=== PATIENT | female | born 1950 | race Caucasian/White ===

== ENCOUNTER → 2018-09-21 13:39 | Outpatient (CLI) | payer OTHER, SELFPAY ==
--- NOTE | 2018-09-21 | DI.MG.S_ITS ---
BILATERAL DIGITAL SCREENING MAMMOGRAM 3D/2D WITH CAD: 09/21/2018 CLINICAL: Routine screening. Family history of breast cancer. Comparison is made to exams dated: 04/29/2017 mammogram, 06/15/2014 mammogram, and 04/08/2012 mammogram - [facility]. There are scattered fibroglandular elements in both breasts. Current study was also evaluated with a Computer Aided Detection (CAD) system. No significant masses, calcifications, or other findings are seen in either breast. There has been no significant interval change. IMPRESSION: NEGATIVE There is no mammographic evidence of malignancy. A 1 year screening mammogram is recommended. This exam was interpreted at Station ID: [id number]. NOTE: For mammograms, a report in lay terms will be sent to the patient. Approximately 15% of breast malignancies will not be visualized mammographically. In the management of a palpable breast mass, a negative mammogram must not discourage biopsy of a clinically suspicious lesion. Electronically Signed By: Adarsh bai/destinee:09/21/2018 15:01:00 letter sent: Normal Exam ACR BI-RADS Category 1: Negative 3341F
== END ==
PROVIDERS: PCP Family Medicine; Visit Provider Family Medicine
DX: Z12.31 Encounter for screening mammogram for malignant neoplasm of breast (principal); Z80.3 Family history of malignant neoplasm of breast
CPT/HCPCS: 77063; 77067

== ENCOUNTER → 2020-10-14 12:32 | Outpatient (CLI) | payer MEDICARE, SELFPAY ==
--- NOTE | 2020-10-14 12:32 | DI.MG.S_ITS ---
BILATERAL DIGITAL SCREENING MAMMOGRAM 3D/2D WITH CAD: 10/14/2020 CLINICAL: Routine screening. Family history of breast cancer. Comparison is made to exams dated: 09/21/2018 mammogram, 04/29/2017 mammogram, and 06/15/2014 mammogram - [facility]. There are scattered fibroglandular elements in both breasts. Current study was also evaluated with a Computer Aided Detection (CAD) system. No significant masses, calcifications, or other findings are seen in either breast. There has been no significant interval change. IMPRESSION: NEGATIVE There is no mammographic evidence of malignancy. A 1 year screening mammogram is recommended. This exam was interpreted at Station ID: [id number]. NOTE: For mammograms, a report in lay terms will be sent to the patient. Approximately 15% of breast malignancies will not be visualized mammographically. In the management of a palpable breast mass, a negative mammogram must not discourage biopsy of a clinically suspicious lesion. Electronically Signed By: Ethan neumann/destinee:10/16/2020 07:51:44 letter sent: Normal Exam ACR BI-RADS Category 1: Negative 3341F
== END ==
PROVIDERS: PCP Family Medicine; Referring Provider Family Medicine; Visit Provider Family Medicine
DX: Z12.31 Encounter for screening mammogram for malignant neoplasm of breast (principal)
CPT/HCPCS: 77063; 77067

== ENCOUNTER → 2021-01-10 13:26 | Outpatient (CLI) | payer MEDICARE, SELFPAY ==
--- NOTE | 2021-01-10 | DI.ECHO.S_ITS ---
[facility] +---------+ : : [address] [place] [address] : : : : [id number] : : : : Phone: [phone]---------+ Echocardiogram Report + + :Name: GA QUEVEDO Study Date: 01/10/2021 Height: 68 in : :[facility] ReadingLocation: Weight: 168 lb : : Gender: Female BSA: 1.9 m2 : :: 1950 Age: 70 yrs BP: 178/104 mmHg: :Reason For Study: TACHYCARDIA : :Ordering Physician: SHANNA, : :DOMENIC Performed By: Bella Bojorquez : :Referring: DOMENIC OTERO : + + Interpretation Summary The left ventricle is normal in size and wall thickness. The ejection fraction is estimated to be 65-70%. The right ventricle is normal in size and function. There is mild to moderate mitral regurgitation. There is mild to moderate aortic regurgitation. There is mild to moderate tricuspid regurgitation. The right ventricular systolic pressure is estimated to be at least 25 mmHg based on an estimated right atrial pressure of 3 mm Hg. Procedure: A two-dimensional transthoracic echocardiogram with color flow and Doppler was performed. The study quality was technically adequate. There is no prior echocardiogram noted for this patient. The patient was in sinus rhythm with heart rates between 66-88 bpm during the exam. Left Ventricle: The left ventricle is normal in size and wall thickness. There is no thrombus. A false chord is noted (normal variant). The ejection fraction is estimated to be 65-70%. There are no focal wall motion abnormalities. Diastolic parameters suggest a relaxation abnormality of the left ventricle, consistent with probable normal filling pressures. Right Ventricle: The right ventricle is normal in size and function. Atria: The left atrium is mildly dilated. Right atrial size is normal. There is no Doppler evidence for an interatrial shunt. Mitral Valve: There is mild mitral annular calcification. There is mild to moderate mitral regurgitation. Aortic Valve: The aortic valve is trileaflet. The aortic valve opens well. There is no aortic valve stenosis. There is mild to moderate aortic regurgitation. Tricuspid Valve: The tricuspid valve is normal. There is mild to moderate tricuspid regurgitation. The right ventricular systolic pressure is estimated to be at least 25 mmHg based on an estimated right atrial pressure of 3 mm Hg. Pulmonic Valve: The pulmonic valve leaflets are thin and pliable; valve motion is normal. There is mild pulmonic regurgitation. Great Vessels: The aortic root is normal size. The ascending aorta is at the upper limits of normal in size. The IVC is of normal diameter and collapses greater than 50% with a sniff. This suggests a low right atrial pressure of 3 mm Hg. Pericardium/ Pleura There is no pericardial effusion. There is an anterior echo-free space consistent with a fat pad. There is no pleural effusion. MMode/2D Measurements & Calculations LVIDd: 5.0 cm LVOT diam: 2.0 cm LVIDs: 3.0 cm Ao root diam: 3.4 cm FS: 40.4 % asc Aorta Diam: 3.5 cm IVSd: 0.87 cm Ao Arch Diam (Prox Trans): 2.2 cm LVPWd: 0.86 cm LV joyce. diameter/BSA (cm/m^2): 2.6 LV sys. diameter/BSA (cm/m^2): 1.6 LA A2 area: 20.6 cm2 RA long axis: 5.3 cm LA A4 area: 16.7 cm2 RA area: 14.9 cm2 LA length (vol): 4.5 cm RA vol: 35.9 ml LA vol: 65.4 ml RA : 18.9 ml/m2 LA vol index: 34.5 ml/m2 IVC diam: 0.81 cm RVD1 (basal): 3.0 cm TAPSE: 2.5 cm Doppler Measurements & Calculations Ao V2 max: 154.8 cm/sec LVOT Max Edgar: 124.6 cm/sec Ao V2 mean: 101.2 cm/sec LV V1 max P.2 mmHg Ao max P.6 mmHg LV V1 VTI: 27.6 cm Ao mean P.7 mmHg MORRO(I,D): 2.7 cm2 Ao V2 VTI: 32.3 cm MORRO(V,D): 2.6 cm2 sev ratio: 0.85 MORRO indexed to BSA (cm^2/m^2): 1.4 AI P1/2t: 633.5 msec AI dec slope: 215.0 cm/sec2 MV E max edgar: 60.5 cm/sec TR max edgar: 238.1 cm/sec MV A max edgar: 83.3 cm/sec TR max P.7 mmHg MV E/A: 0.73 PA V2 max: 108.0 cm/sec Med Peak E' Edgar: 7.6 cm/sec PA V2 mean: 76.0 cm/sec E/E' med: 7.9 PA mean P.6 mmHg Lat Peak E' Edgar: 5.7 cm/sec PA pr(Accel): 29.3 mmHg E/E' lat: 10.6 E/e' average: 9.3 MV dec time: 0.31 sec SV(LVOT): 88.8 ml Reading Physician:06:04 PM
== END ==
PROVIDERS: PCP Family Medicine; Referring Provider Family Medicine; Visit Provider Family Medicine
DX: I08.3 Combined rheumatic disorders of mitral, aortic and tricuspid valves (principal); R00.0 Tachycardia, unspecified; R42 Dizziness and giddiness
CPT/HCPCS: 93306

== ENCOUNTER 2021-01-25 12:09 | Day surgery (SDC) | payer MEDICARE, SELFPAY ==
[2021-01-25] VITALS (7 sets, daily range): BP systolic 110–140; BP diastolic 66–94; PULSE 57–77; RESP 10–98; TEMP 36–36.8; O2SAT 96–100; BMI 25.9
--- NOTE | 2021-01-25 13:32 | PM.HP.1 ---
History of Present Illness History of Present Illness Date Patient Seen: 01/25/21 Time Patient Seen: 13:33 Chief complaint: DX COLONOSCOPY Narrative: The patient presents for colorectal sreening. She has had a previously colonoscopy. She was referred for diagnostic colonoscopy secondary to a positive screening fecal immunochemical test. No personal or family history of colon cancer. On further history denies any recent gastrointestinal symptoms. No nausea, vomiting, abdominal pain, loss of appetite, unexplained weight loss, change in bowel habits, diarrhea, constipation, melena, hematochezia, or bright red blood per rectum. Patient History Surgical History History of third molar tooth extraction History of tonsillectomy Status post hysterectomy Family & Social History Family History Father Hypertension Social History: household members spouse Tobacco & Substance use: Smoking Status Former smoker alcohol intake frequency holiday/special occasion Substance Use Type does not use Meds Home Medications and Allergies Home Medications Medication Instructions Recorded Confirmed Type CA PANTOTHENATE/FOLIC ACID/VIT 1 tab PO QDAY #0 11/13/10 History (MULTIVITAMIN) CHOLECALCIFEROL (VITAMIN D) 2,000 iu PO Q DAY #0 11/13/10 History CHONDROITIN SULFATE/GLUCOSAMIN 1 tab PO Q DAY #0 11/13/10 History (GLUCOSAMINE/CHONDROITIN 600 MG-750 MG) loratadine 10 mg tablet 10 mg PO QDAY #0 02/21/12 History [BENEDRYL] 25 mg HS #0 08/20/16 History [TUMERIC] 450 mg Q DAY #0 08/20/16 History naproxen sodium 220 mg capsule 220 mg PO Q DAY #0 08/20/16 History omega 1-kll-sxa-fish oil 1,000 mg 1,000 mg PO Q DAY #0 08/20/16 History (120 mg-180 mg) capsule (Fish Oil) levothyroxine 75 mcg tablet 0.075 mg PO QAM #90 tab 12/26/16 Rx (Synthroid) losartan 25 mg 01/25/21 History metoprolol tartrate 25 mg 01/25/21 History Allergies Allergy/AdvReac Type Severity Reaction Status Date / Time lisinopril [LISINOPRIL] Allergy Mild cough Verified 01/25/21 12:45 cetirizne Allergy Intermediate projectile Uncoded 01/25/21 12:45 vomitting Review of Systems Review of Systems ROS: Yes All systems reviewed with the patient and are negative except as otherwise documented Exam Vital Signs (past 8 hours): - 01/25/21 13:00 Temperature 98.2 F Pulse Rate 77 Respiratory Rate 18 Blood Pressure 140/94 H Pulse Oximetry 99 Oxygen Delivery Method Room Air Narrative Exam Narrative: Constitutional-She is oriented to person, place and time. No apparent distress Cardiovascular- regular rate, no peripheral edema Pulmonary-unlabored respiratory effort, no audible wheezing Abdominal-soft, non-tender, non-distended Musculoskeletal-no cyanosis or clubbing Neurological-nonfocal, normal strength throughout, Skin-warm and dry Assessment & Plan Assessment and plan (1) Positive FIT (fecal immunochemical test): Status: Acute Assessment & Plan narrative: The patient requires diagnostic colonoscopy secondary to a positive fecal immunochemical test. Technical details were discussed. Risks, benefits, alternatives explained. Risks including but not limited to myocardial infarction, aspiration, bleeding, pain, missed lesion, incomplete examination, need for further radiographic studies, colonic perforation, and need for major abdominal surgery were discussed. All questions were answered to their satisfaction, and they are in agreement with this plan. Time Spent With Patient Critical Care time: I spent a total of [] minutes of critical care time on this patient's care today; this time is exclusive of procedural time.
[2021-01-25] MEDS: ONDANSETRON 4 MG/2 ML INJ IV (13:52)
[2021-01-25] MEDS: fentaNYL 250 MCG/5 ML INJ IV (13:54)
[2021-01-25] MEDS: MIDAZOLAM 5 MG/5 ML VIAL IV (13:54)
[2021-01-25] MEDS: LACTATED RINGERS 1,000 ML 200 ML IV (14:00)
--- NOTE | 2021-01-25 14:05 | P.OP.ENDO_ITS ---
Operative Date/Time/Diagnoses Date of procedure: 01/25/21 Time of procedure: 14:05 Pre-op diagnosis: positive FIT Post-op diagnosis: same Procedure & Clinicians Study performed: Colonoscopy Same procedure as scheduled: Yes Indications: Positive FIT Surgeon: Blayne Mckay Procedure Notes Procedure in detail: Medications: Conscious sedation using 7mg IV midazolam and 200mcg IV of fentanyl The history and physical was performed/updated and the patient is ASA class is 2. The procedure was discussed in detail with the patient. Potential risks complications including infection, bleeding, missed diagnosis, perforation, need for surgery, and were explained. Their questions were answered and informed consent was obtained. Patient was brought to the procedure room and placed standard monitoring equipment. The patient's vital signs were monitored continuously throughout the entire procedure. Prior to starting time-out was performed. The patient was placed in the left lateral recumbent position. Procedural sedation was admi nistered. Examination began with a thorough inspection of the perianal area there was no evidence of fissures, fistulae, external hemorrhoids or cutaneous malignancy. The colonoscopy scope was then placed into the anal canal and was advanced to the cecum, which was identified by the ileocecal valve, the appendiceal orifice and the confluence of the taenia. The scope was then slowly withdrawn examining colon thoroughly in all directions, irrigating it of any residual stool. FINDINGS 1. Tortuous colon. 2. Diffuse diverticulosis 3. No masses or polyps 4. Grade 2 internal hemorrhoids The patient tolerated the procedure well. They will be discharged once criteria are met. The prep was of fair quality. The withdrawl time was 6 minutes. The sedation time was 23 minutes. Specimen(s): none sent Complications: none Impression: Diverticulosis Post-procedure Recommendations: Colonscopy in 10 years and High fiber diet Disposition: same day surgery
== END 2021-01-25 14:55 | disposition home or self-care (01) ==
PROVIDERS: PCP Family Medicine; Referring Provider Surgery; Visit Provider Surgery
PROC: 0DJD8ZZ Inspection of Lower Intestinal Tract, Via Natural or Artificial Opening Endoscopic (ICD-10-PCS; CPT 45378; principal; 2021-01-25 13:45)
DX: R19.5 Other fecal abnormalities (principal); K57.30 Diverticulosis of large intestine without perforation or abscess without bleeding; K64.1 Second degree hemorrhoids
CPT/HCPCS: 45378; 99152; J2250; J2405; J3010

== ENCOUNTER → 2021-03-26 10:13 | Outpatient (CLI) | payer MEDICARE, SELFPAY ==
[2021-03-26 11:24] LABS: COVID19 -Nasal RAPID Negative (Negative)
== END ==
PROVIDERS: PCP Family Medicine; Visit Provider Physician Assistant
DX: Z01.812 Encounter for preprocedural laboratory examination (principal); Z20.822 Contact with and (suspected) exposure to COVID-19
CPT/HCPCS: 87635

== ENCOUNTER 2021-03-27 10:12 | Day surgery (SDC) | payer MEDICARE, SELFPAY ==
[2021-03-27] MEDS: CATARACT EYE COMPOUND (10 DROPS/SYRINGE) 3 DROPS EYE-OP (10:50)
[2021-03-27] MEDS: PROPARACAINE 0.5% OPHTH SOL 2 DROPS EYE-OP (10:50)
[2021-03-27 10:58] VITALS: BP 155/88; PULSE 65; RESP 16; TEMP 36.6; O2SAT 99; BMI 26.6
[2021-03-27 11:09] VITALS: BMI 26.6
--- NOTE | 2021-03-27 11:57 | PM.PREOP ---
Pre-operative Note Interval Note History & Physical reviewed/Exam performed by Physician: Yes Changes to H&P: No
--- NOTE | 2021-03-27 11:57 | PM.OP.1 ---
Operative Date/Time/Diagnoses Pre-op diagnosis: Nuclear cataract right eye Procedure & Clinicians Procedure: Cataract Surgery Same procedure as scheduled: Yes Surgeon: Miguel Angel Martinez Anesthesia Type: MAC +/- and Sedation Operative Notes Procedure in detail: Patient brought to the operating suite. Tetracaine drops placed in the right eye. Patient was prepped and draped in sterile manner. Wire lid speculum was placed in the eye. Betadine drops were placed on the eye. This was irrigated. Lidocaine jelly was placed on the eye. A paracentesis port was created with a side-port blade. 0.1 mL 1% preservative free lidocaine was injected into the anterior chamber. The anterior chamber was deepened with viscoelastic. 2.6 mm keratome was used to create a temporal clear corneal incision. Cystotome and Utrata forceps were used to create continuous tear capsulorrhexis. Balanced salt solution was used to hydro dissect the nucleus. The phacoemulsification handpiece was inserted and the nucleus was removed using the stop and chop technique. The irrigation aspiration handpiece was inserted and the remaining cortex was removed. Anterior chamber was deepened with viscoelastic. An Pinedo DIB00 intraocular lens with a power of 20.5 was injected into the capsular bag. Irrigation aspiration handpiece was inserted and the remaining viscoelastic was removed. Incision was hydrated with balanced salt solution and found to be leak free with pressure with Weck-Halina sponges. 0.1 mL Vigamox injected anterior chamber. 0.3 mL Kenalog 10 mg was injected subconjunctivally. Lid speculum was removed. The patient left the operating room in excellent condition. Complications: none Post-operative Condition: stable Disposition: same day surgery
[2021-03-27] MEDS: MOXIFLOXACIN INJ 4 MG/0.8 ML VIAL 0.5 MG EYE-OP (12:18)
[2021-03-27] MEDS: TRIAMCINOLONE 50 MG/5 ML VIAL INJ (12:18)
[2021-03-27] MEDS: BALANCED SALT IRRIG SOLN NO.2 500 ML, EPINEPHrine 1 MG IRR (12:18)
[2021-03-27] MEDS: PHENYLEPHRINE/LIDOCAINE VIAL (OR) 0.2 ML EYE-OP (12:18)
[2021-03-27] MEDS: HYALURONATE SODIUM 30 MG-10 MG/ML SYRINGES 1 BOX INTRAOCULA (12:18)
[2021-03-27] MEDS: TETRACAINE 0.5% OPHTH DROPS 4 ML 2 DROPS EYE-OP (12:19)
[2021-03-27] MEDS: LIDOCAINE 2% (GLYDO) 6 ML GEL TOP (12:19)
[2021-03-27 12:33] VITALS: BP 128/83; PULSE 60; RESP 20; TEMP 36.7; O2SAT 99
== END 2021-03-27 12:33 | disposition home or self-care (01) ==
PROVIDERS: PCP Family Medicine; Referring Provider Ophthalmology; Visit Provider Ophthalmology
PROC: (CPT 66984; principal; 2021-03-27 12:15)
DX: H25.11 Age-related nuclear cataract, right eye (principal); I10 Essential (primary) hypertension; E03.9 Hypothyroidism, unspecified
CPT/HCPCS: 66984; J0171; J2250; J3301

== ENCOUNTER → 2021-04-09 11:40 | Outpatient (CLI) | payer MEDICARE, SELFPAY ==
[2021-04-09 14:00] LABS: COVID19 -Nasal RAPID Negative (Negative)
== END ==
PROVIDERS: PCP Family Medicine; Referring Provider Physician Assistant; Visit Provider Physician Assistant
DX: Z20.822 Contact with and (suspected) exposure to COVID-19 (principal)
CPT/HCPCS: 87635; C9803

== ENCOUNTER 2021-04-10 10:22 | Day surgery (SDC) | payer MEDICARE, SELFPAY ==
[2021-04-10] MEDS: PROPARACAINE 0.5% OPHTH SOL 2 DROPS EYE-OP (10:44)
[2021-04-10] MEDS: CATARACT EYE COMPOUND (10 DROPS/SYRINGE) 3 DROPS EYE-OP (10:45)
[2021-04-10 10:47] VITALS: BP 156/97; PULSE 75; RESP 18; TEMP 36.3; O2SAT 98
[2021-04-10 10:51] VITALS: BMI 26.6
--- NOTE | 2021-04-10 11:55 | PM.PREOP ---
Pre-operative Note Interval Note History & Physical reviewed/Exam performed by Physician: Yes Changes to H&P: No
--- NOTE | 2021-04-10 11:55 | PM.OP.1 ---
Operative Date/Time/Diagnoses Pre-op diagnosis: Nuclear Cataract Left eye Post-op diagnosis: same Procedure & Clinicians Same procedure as scheduled: Yes Surgeon: Miguel Angel Martinez Anesthesia Type: MAC +/- and Sedation Operative Notes Procedure in detail: Patient brought to the operating suite. Tetracaine drops placed in the left eye. Patient was prepped and draped in sterile manner. Wire lid speculum was placed in the eye. Betadine drops were placed on the eye. This was irrigated. Lidocaine jelly was placed on the eye. A paracentesis port was created with a side-port blade. 0.1 mL 1% preservative free lidocaine was injected into the anterior chamber. The anterior chamber was deepened with viscoelastic. 2.6 mm keratome was used to create a temporal clear corneal incision. Cystotome and Utrata forceps were used to create continuous tear capsulorrhexis. Balanced salt solution was used to hydro dissect the nucleus. The phacoemulsification handpiece was inserted and the nucleus was removed using the stop and chop technique. The irrigation aspiration handpiece was inserted and the remaining cortex was removed. Anterior chamber was deepened with viscoelastic. An Pinedo DIB00 intraocular lens with a power of 20.5 was injected into the capsular bag. Irrigation aspiration handpiece was inserted and the remaining viscoelastic was removed. Incision was hydrated with balanced salt solution and found to be leak free with pressure with Weck-Halina sponges. 0.1 mL Vigamox injected anterior chamber. 0.3 mL Kenalog 10 mg was injected subconjunctivally. Lid speculum was removed. The patient left the operating room in excellent condition. Complications: none Post-operative Condition: stable Disposition: same day surgery
[2021-04-10] MEDS: HYALURONATE SODIUM 30 MG-10 MG/ML SYRINGES 1 BOX INTRAOCULA (12:12)
[2021-04-10] MEDS: BALANCED SALT IRRIG SOLN NO.2 500 ML, EPINEPHrine 1 MG IRR (12:13)
[2021-04-10] MEDS: TRIAMCINOLONE 50 MG/5 ML VIAL INJ (12:13)
[2021-04-10] MEDS: MOXIFLOXACIN INJ 4 MG/0.8 ML VIAL 0.5 MG EYE-OP (12:13)
[2021-04-10] MEDS: PHENYLEPHRINE/LIDOCAINE VIAL (OR) 0.2 ML EYE-OP (12:13)
[2021-04-10] MEDS: LIDOCAINE 2% (GLYDO) 6 ML GEL TOP (12:14)
[2021-04-10] MEDS: TETRACAINE 0.5% OPHTH DROPS 4 ML 2 DROPS EYE-OP (12:14)
[2021-04-10 12:25] VITALS: BP 131/86; PULSE 56; RESP 16; TEMP 36.4; O2SAT 98
[2021-04-10 12:42] VITALS: BP 140/83; PULSE 52; RESP 16; TEMP 36.1; O2SAT 99
--- NOTE | 2021-04-10 13:03 | SUR.PHASEII ---
Patient in ED room 6. Patient discharged to in ED who is alert, orienting and able to ambulate and drive. Pt steady on feet. Tolerating liquids. Snacks given.
== END 2021-04-10 12:46 | disposition home or self-care (01) ==
PROVIDERS: PCP Family Medicine; Referring Provider Ophthalmology; Visit Provider Ophthalmology
PROC: (CPT 66984; principal; 2021-04-10 12:15)
DX: H25.12 Age-related nuclear cataract, left eye (principal); I10 Essential (primary) hypertension; E03.9 Hypothyroidism, unspecified
CPT/HCPCS: 66984; J0171; J2250; J3301

== ENCOUNTER → 2021-04-26 09:22 | Outpatient (CLI) | payer MEDICARE, SELFPAY ==
[2021-04-26 10:36] LABS: COVID19 -Nasal RAPID Negative (Negative)
--- NOTE | 2021-04-26 19:22 | DI.NM.S_ITS ---
DATE OF SERVICE: 04/26/2021 PROCEDURE: Exercise perfusion study. INDICATION: Paroxysmal AFib, hypertension, hyperlipidemia. RADIOPHARMACEUTICAL: 25.9 millicurie technetium-99m Myoview IV was injected at stress and 12.3 millicurie technetium-99m Myoview IV was injected at rest. CARDIAC STRESS: The patient underwent exercise perfusion study under the supervision of an attending staff. The patient walked on Ronan protocol for 7 minutes and 33 seconds, achieved a maximum heart rate of 138, which was 92 percent of target heart rate. Baseline blood pressure 132/80 mmHg. Peak blood pressure 202/100 mmHg. The patient achieved 10.1 METs of workload. Baseline rhythm was sinus with poor R-wave progression. During stress, there were no convincing ischemic changes. Rare PACs and PVCs. No obvious atrial fibrillation or sustained ventricular arrhythmias seen. The patient did not have any anginal symptoms. [place] fatigue. RAW DATA: Breast shadow was seen. There was increased subdiaphragmatic activity, as well. GATED STUDY: Stress LV ejection fraction 73 percent without any obvious wall motion abnormalities. Resting end-diastolic volume 99 mL. TID ratio 1.02, which is within normal limits. Lung/heart ratio 0.32, which is within normal limits. MYOCARDIAL PERFUSION SCAN: Stress supine, resting supine and stress prone images were compared to each other. The stress and resting supine images revealed small size, mildly decreased perfusion of distal anterior wall, which got resolved during stress prone images, suggestive of breast tissue attenuation artifact. No convincing ischemia or infarction pattern seen. CONCLUSION: I will call this study a normal myocardial perfusion study with evidence of breast tissue attenuation artifact, which got resolved during stress prone images. Functional aerobic impairment -28 percent with good exercise capacity. Normal heart rate response. Mildly hypertensive blood pressure response. No significant sustained arrhythmias during exercise. No anginal symptoms. Overall low-risk exercise perfusion study. TySally de guzman - SEBASTIÁN/john/denise doc#: [id number]/job#: [id number] dd: 04/26/2021 17:19:00 dt: 04/26/2021 18:58:00 DICTATING MD/COPIES TO: Sandip Wilson MD COPIES MNE: FRANSISCO;
== END ==
PROVIDERS: PCP Family Medicine; Referring Provider Internal Medicine Cardiovascular Disease; Visit Provider Internal Medicine Cardiovascular Disease
DX: I49.5 Sick sinus syndrome (principal); I48.0 Paroxysmal atrial fibrillation; I10 Essential (primary) hypertension; E78.5 Hyperlipidemia, unspecified; Z20.822 Contact with and (suspected) exposure to COVID-19
CPT/HCPCS: 78452; 87635; 93017; A9502

== ENCOUNTER → 2021-07-09 | Outpatient (CLI) | payer MEDICARE, SELFPAY ==
--- NOTE | 2021-07-09 | DI.RAD.S_ITS ---
PROCEDURE: XR DEXA AXIAL SKELETON INDICATIONS: Asymptomatic menopausal state COMPARISON: None. FINDINGS: This blank DEXA report has been sent in error by the PACS system. The correct and complete report will be forthcoming in 1-2 days. Thank you for your patience and understanding. Dictated by: Sarah Zayas MD, PhD on 07/09/2021 at 13:28 Approved by: Sarah Zayas MD, PhD on 07/09/2021 at 13:28
== END ==
LOC: RAD 11:29
PROVIDERS: PCP Nurse Practitioner Family; Referring Provider Nurse Practitioner Family; Visit Provider Nurse Practitioner Family
DX: M85.852 Other specified disorders of bone density and structure, left thigh (principal); Z78.0 Asymptomatic menopausal state; E07.9 Disorder of thyroid, unspecified; R29.890 Loss of height; E55.9 Vitamin D deficiency, unspecified; Z90.722 Acquired absence of ovaries, bilateral; Z87.891 Personal history of nicotine dependence; Z82.62 Family history of osteoporosis
CPT/HCPCS: 77080

== ENCOUNTER → 2021-10-24 12:13 | Outpatient (CLI) | payer MEDICARE, SELFPAY ==
--- NOTE | 2021-10-24 12:15 | DI.MG.S_ITS ---
BILATERAL DIGITAL SCREENING MAMMOGRAM 3D/2D WITH CAD: 10/24/2021 CLINICAL: Routine screening. Family history of breast cancer. Comparison is made to exams dated: 10/14/2020 mammogram, 09/21/2018 mammogram, and 04/29/2017 mammogram - [facility]. There are scattered fibroglandular elements in both breasts. Current study was also evaluated with a Computer Aided Detection (CAD) system. No significant masses, calcifications, or other findings are seen in either breast. There has been no significant interval change. IMPRESSION: NEGATIVE There is no mammographic evidence of malignancy. A 1 year screening mammogram is recommended. This exam was interpreted at Station ID: [id number]. NOTE: For mammograms, a report in lay terms will be sent to the patient. Approximately 15% of breast malignancies will not be visualized mammographically. In the management of a palpable breast mass, a negative mammogram must not discourage biopsy of a clinically suspicious lesion. Electronically Signed By: Delbert Coronel M.D., jr/destinee:10/24/2021 14:26:20 letter sent: Normal Exam ACR BI-RADS Category 1: Negative 3341F
== END ==
PROVIDERS: PCP Nurse Practitioner Family; Referring Provider Nurse Practitioner Family; Visit Provider Nurse Practitioner Family
DX: Z12.31 Encounter for screening mammogram for malignant neoplasm of breast (principal); Z80.3 Family history of malignant neoplasm of breast
CPT/HCPCS: 77063; 77067

== ENCOUNTER → 2022-11-04 14:25 | Outpatient (CLI) | payer MEDICARE, SELFPAY ==
--- NOTE | 2022-11-04 | DI.MG.S_ITS ---
BILATERAL DIGITAL SCREENING MAMMOGRAM 3D/2D WITH CAD: 11/04/2022 CLINICAL: Routine screening. Family history of breast cancer. Comparison is made to exams dated: 10/24/2021 mammogram, 10/14/2020 mammogram, and 09/21/2018 mammogram - [facility]. There are scattered areas of fibroglandular density in both breasts (category b / 25%-50% glandular tissue). Current study was also evaluated with a Computer Aided Detection (CAD) system. There is an asymmetry in the left breast posterior depth lateral region seen on the craniocaudal view only. This is more prominent. No other significant masses, calcifications, or other findings are seen in either breast. IMPRESSION: INCOMPLETE: NEEDS ADDITIONAL IMAGING EVALUATION The asymmetry in the left breast is indeterminate. Additional views with possible ultrasound are recommended. Based on the Tyrer Cuzick model (a risk assessment model) the patient's lifetime risk is 10.3% and her 10 year risk is 7.1%. According to the ACR, ACS, and NCCN guidelines, an annual breast MRI exam along with mammogram is recommended if the patient's lifetime risk is 20% or greater. This exam was interpreted at Station ID: [id number]. NOTE: For mammograms, a report in lay terms will be sent to the patient. Approximately 15% of breast malignancies will not be visualized mammographically. In the management of a palpable breast mass, a negative mammogram must not discourage biopsy of a clinically suspicious lesion. Electronically Signed By: Fahad Davis M.D. /:11/04/2022 14:57:24 letter sent: Additional Imaging Needed ACR BI-RADS Category 0: Incomplete 3340F
== END ==
PROVIDERS: PCP Family Medicine; Referring Provider Nurse Practitioner Family; Visit Provider Nurse Practitioner Family
DX: Z12.31 Encounter for screening mammogram for malignant neoplasm of breast (principal); Z80.3 Family history of malignant neoplasm of breast
CPT/HCPCS: 77063; 77067

== ENCOUNTER → 2022-11-18 11:53 | Outpatient (CLI) | payer MEDICARE, SELFPAY ==
--- NOTE | 2022-11-18 | DI.MG.S_ITS ---
UNILATERAL LEFT DIGITAL DIAGNOSTIC MAMMOGRAM 3D/2D WITH ADDITIONAL VIEWS: 11/18/2022 CLINICAL: Additional evaluation requested from prior study. Comparison is made to exams dated: 11/04/2022 mammogram, 10/24/2021 mammogram, and 10/14/2020 mammogram - . There are scattered areas of fibroglandular density in the left breast (category b / 25%-50% glandular tissue). There is an asymmetry in the left breast posterior depth lateral region seen on the craniocaudal view only. This is less prominent, likely superimposition. No other significant masses or calcifications are seen in the breast. IMPRESSION: NEGATIVE There is no mammographic evidence of malignancy. Return to annual mammogram screening schedule is recommended. Based on the Tyrer Cuzick model (a risk assessment model) the patient's lifetime risk is 10.3% and her 10 year risk is 7.1%. According to the ACR, ACS, and NCCN guidelines, an annual breast MRI exam along with mammogram is recommended if the patient's lifetime risk is 20% or greater. This exam was interpreted at Station ID: [id number]. NOTE: For mammograms, a report in lay terms will be sent to the patient. Approximately 15% of breast malignancies will not be visualized mammographically. In the management of a palpable breast mass, a negative mammogram must not discourage biopsy of a clinically suspicious lesion. Electronically Signed By: Fahad Davis M.D. lc/:11/18/2022 12:18:52 letter sent: Normal Exam ACR BI-RADS Category 1: Negative 3341F
== END ==
PROVIDERS: PCP Family Medicine; Referring Provider Family Medicine; Visit Provider Family Medicine
DX: R92.8 Other abnormal and inconclusive findings on diagnostic imaging of breast (principal)
CPT/HCPCS: 77065; G0279

== ENCOUNTER → 2024-03-08 10:34 | Outpatient (CLI) | payer MEDICARE, OTHER, SELFPAY ==
--- NOTE | 2024-03-08 10:38 | DI.MG.S_ITS ---
BILATERAL DIGITAL SCREENING MAMMOGRAM 3D/2D WITH CAD: 03/08/2024 CLINICAL: Routine screening. Family history of breast cancer. Comparison is made to exams dated: 10/24/2021 mammogram, 11/04/2022 mammogram, and 10/14/2020 mammogram - [facility]. There are scattered areas of fibroglandular density (category b / 25%-50% glandular tissue). Current study was also evaluated with a Computer Aided Detection (CAD) system. No significant masses, calcifications, or other findings are seen in either breast. There has been no significant interval change. IMPRESSION: NEGATIVE There is no mammographic evidence of malignancy. A 1 year screening mammogram is recommended. Based on the Tyrer Cuzick model (a risk assessment model) the patient's lifetime risk is 9.2% and her 10 year risk is 7.6%. According to the ACR, ACS, and NCCN guidelines, an annual breast MRI exam along with mammogram is recommended if the patient's lifetime risk is 20% or greater. This exam was interpreted at Station ID: [id number]. NOTE: For mammograms, a report in lay terms will be sent to the patient. Approximately 15% of breast malignancies will not be visualized mammographically. In the management of a palpable breast mass, a negative mammogram must not discourage biopsy of a clinically suspicious lesion. Electronically Signed By: Fahad walker/destinee:03/08/2024 14:38:01 letter sent: Normal Exam ACR BI-RADS Category 1: Negative
== END ==
PROVIDERS: PCP Family Medicine; Referring Provider Family Medicine; Visit Provider Family Medicine
DX: Z12.31 Encounter for screening mammogram for malignant neoplasm of breast (principal); Z80.3 Family history of malignant neoplasm of breast
CPT/HCPCS: 77063; 77067

== ENCOUNTER → 2025-05-09 13:30 | Outpatient (CLI) | payer MEDICARE, OTHER, SELFPAY ==
--- NOTE | 2025-05-09 13:31 | DI.MG.S_ITS ---
MM screening mammo BI: 05/09/2025. BI-RADS: 0 CLINICAL: 74-year old female for bilateral screening mammogram. Tyrer-Cuzick lifetime risk of 7.3%. Current reported family history of breast cancer: sister and maternal aunt. PRIOR EXAMS: 03/08/2024, 11/18/2022, 11/04/2022, 10/24/2021, 10/14/2020, 09/21/2018, 04/29/2017. MAMMOGRAPHY TECHNIQUE: 2D and 3D (tomosynthesis) digital mammographic views obtained, with additional images as needed for full coverage. Current study was also evaluated with a Computer Aided Detection (CAD) system. DENSITY B. There are scattered areas of fibroglandular density. MAMMOGRAPHY FINDINGS Right: No suspicious mass, asymmetry, microcalcification, or other abnormality seen. Left: Outer Central, Middle depth: Focal asymmetry needing additional imaging evaluation. IMPRESSION: Right * No evidence of malignancy. Left (Asymmetry): Outer Central, Middle depth * Incomplete - focal asymmetry needing additional imaging evaluation. RECOMMENDATIONS Left: Outer Central, Middle depth * Further evaluation with diagnostic mammography and diagnostic ultrasound. Ultrasound to be performed only if needed. OVERALL ASSESSMENT CATEGORY BI-RADS-0: Incomplete - Need Additional Imaging Evaluation. ELECTRONICALLY SIGNED: Karla De La Vega M.D. on 05/09/2025 at 03:21:23 PM PT Interpreting Station ID: [id number]
== END ==
LOC: MAMMO 13:31
PROVIDERS: PCP Physician Assistant; Referring Provider Physician Assistant; Visit Provider Physician Assistant
DX: Z12.31 Encounter for screening mammogram for malignant neoplasm of breast (principal); Z80.3 Family history of malignant neoplasm of breast
CPT/HCPCS: 77063; 77067